=== PATIENT | male | born 1955 | race Caucasian/White ===

== ENCOUNTER 2021-09-26 15:28 | Outpatient (CLI) | payer MEDICARE, OTHER, SELFPAY | END 2021-09-26 15:29 | disposition home or self-care (01) | LOC: LKVREF 15:29 | PROVIDERS: PCP Family Medicine; Visit Provider Physician Assistant Medical | DX: L98.9 Disorder of the skin and subcutaneous tissue, unspecified (principal) | CPT/HCPCS: 86618 ==

== ENCOUNTER 2022-02-24 10:46 | Outpatient (CLI) | payer MEDICARE, OTHER, SELFPAY ==
[2022-02-24 22:40] LABS: Chloride* 104 mmol/L (96-114); Potassium* 4.7 mmol/L (3.6-5.1); Sodium* 138 mmol/L (135-149)
[2022-02-24 22:42] LABS: Cholesterol* 202 mg/dL (90-199); Estimated Glomerular Filt Rate 82 ml/min
[2022-02-24 22:43] LABS: Blood Urea Nitrogen* 21 mg/dL (7-30); Calcium* 9.7 mg/dL (8.4-10.6); Carbon Dioxide* 25 mmol/L (20-32); Glucose* 102 mg/dL (60-115); HDL Cholesterol* 46 mg/dL (>=40); LDL Cholesterol Calculated 105 mg/dL (<100); Triglycerides* 253 mg/dL (40-149)
== END 2022-02-24 10:47 | disposition home or self-care (01) ==
LOC: LKVREF 10:46
PROVIDERS: PCP Family Medicine; Visit Provider Family Medicine
DX: Z00.00 Encounter for general adult medical examination without abnormal findings (principal); I10 Essential (primary) hypertension; Z13.6 Encounter for screening for cardiovascular disorders
CPT/HCPCS: 80048; 80061

== ENCOUNTER 2022-09-06 10:14 | Emergency (ER) | payer MEDICARE, OTHER, SELFPAY ==
[2022-09-06 10:36] VITALS: BP 159/83; PULSE 89; RESP 18; TEMP 36.4; O2SAT 95; BMI 38.5
--- NOTE | 2022-09-06 10:41 | ED.NURSE ---
Last tetanus, per [facility]: 12/24/2017.
--- NOTE | 2022-09-06 11:17 | CRLHL7_ITS ---
For Patients: As a result of the Century Cures Act, medical imaging exams and procedure reports are released immediately into your electronic medical record. You may view this report before your referring provider. If you have questions, please contact your health care provider. INDICATION: Headache. Trauma. TECHNIQUE: Non-contrast CT of the head is submitted. No comparisons. FINDINGS: The ventricles, sulci and gyri are of normal size, shape and contour. Midline structures are centrally located. No convincing evidence of intra- or extra-axial fluid collections. IMPRESSION: 1. No radiographic evidence of acute intracranial abnormalities. Dictated by Yariel Whitaker MD @ 09/06/2022 11:55:12 AM Please note that all CT scans at this facility use dose modulation, iterative reconstruction, and/or weight-based dosing when appropriate to reduce radiation dose to as low as reasonably achievable. Dictated by: Yariel Whitaker MD @ 09/06/2022 11:55:20 (Electronically Signed)
--- NOTE | 2022-09-06 11:19 | ED_ITS ---
HPI - Head Injury General Date Seen: 09/06/22 Chief complaint: Laceration/Wound Stated complaint: Cow knocked him over, head laceration Time Seen by Provider: 09/06/22 10:54 Source: patient Mode of arrival: ambulatory Limitations: no limitations History of Present Illness HPI Narrative: Patient is a very nice 67-year-old gentleman who presents here after head injury not he was knocked over approximately 30-40 minutes go by his cows, no loss consciousness but hit his head on a rock on the ground. Denies any numbness tingling weakness in his arms, or neck pain. No history of nausea vomiting amnesia, or other problems no previous history of a head injury noted, he does not think he is on any anticoagulants, and review here I would agree that. He presented by himself to the emergency room his tetanus is up-to-date, lacerations over the left parietal region. MD Complaint: head injury Severity: moderate Quality: sharp and throbbing Radiation: none Other Injuries: laceration Associated symptoms: denies other symptoms Related Data Home Medications Medication Instructions Recorded Confirmed fluticasone fur. 200 mcg-umeclid inhalation 09/26/21 08/15/22 62.5 mcg-vilant 25 mcg inhalat.powder (Trelegy Ellipta) tamsulosin 0.4 mg capsule 0.4 mg PO 09/26/21 08/15/22 cholecalciferol (vitamin D3) 25 1,000 unit PO DAILY 12/06/21 08/15/22 mcg (1,000 unit) tablet ibuprofen-diphenhydramine citrate 1 cap PO .Bedtime 12/06/21 08/15/22 200 mg-38 mg tablet Previous Rx's Medication Instructions Recorded clotrimazole 10 mg ofelia 10 mg mucous membrane TID #30 tabs 12/06/21 albuterol sulfate 90 mcg/actuation 2 puff inhalation Q4H PRN 03/07/22 aerosol inhaler shortness of breath or wheezing #8.5 grams budesonide-formoterol HFA 160 2 puff inhalation Q12H #10.2 grams 03/07/22 mcg-4.5 mcg/actuation aerosol inhaler (Symbicort) fluticasone furoate 200 1 inh inhalation QDAY #60 ea 03/07/22 mcg-vilanterol 25 mcg/dose inhalation powder (Breo Ellipta) losartan 50 mg tablet 50 mg PO QDAY #90 tabs 03/07/22 pantoprazole 20 mg tablet,delayed 20 mg PO QDAY #90 tabs 03/07/22 release triamterene 37.5 1 cap PO QAM #90 caps 03/07/22 mg-hydrochlorothiazide 25 mg capsule Allergies Allergy/AdvReac Type Severity Reaction Status Date / Time Penicillins Allergy Intermediate Rash Verified 08/15/22 09:06 Review of Systems Status of ROS: Reports: 10 or more systems reviewed and unremarkable except as noted in History and below [facility] Medical History Umbilical hernia ?K42.9 - Umbilical hernia without obstruction or gangrene (ICD-10) GERD (gastroesophageal reflux disease) ?K21.9 - Gastro-esophageal reflux disease without esophagitis (ICD-10) Malignant neoplasm of prostate ?C61 - Malignant neoplasm of prostate (ICD-10) Hypertension with goal blood pressure less than 140/80 ?I10 - Essential (primary) hypertension (ICD-10) Asthma ?J45.909 - Unspecified asthma, uncomplicated (ICD-10) Surgical History History of right knee surgery (02/26/17) ?Z98.890 - Other specified postprocedural states (ICD-10) Family History Mother Cancer Social History Narrative: Nonsmoker. Current no EtOH. Smoking Status: Never smoker Little interest or pleasure in doing things: not at all Feeling down, depressed, or hopeless: not at all Exam Narrative: Exam Narrative: Patient is seen in room 3, he epitomizes the tough old robles scenario. Alert oriented x3 speaking to me normally pupils equal round reactive to light his TMs are normal his neck is supple full range of motion from 4 cm through 16 cm is no dyana lateral flexion is 20? in his rotation is greater than 60? without pain, there is large laceration of approximately 3 in over the left parietal region that is gaping, and bleeding. Do not detect a foreign body within it, but it needs to be explored further. Industrial Trainer strengths are equal bilaterally, moves extremities normally is able to walk and talk normally. Strength is normal is upper lower extremities for past symmetrical bilaterally with no problems. Const: Vital Signs, click to edit/add: Vital Signs - 24 hr 09/06/22 10:36 Temperature 97.6 F Pulse Rate [Right Pulse Oximeter] 89 Respiratory Rate 18 Blood Pressure [Ri ght Upper Arm] 159/83 H Pulse Oximetry 95 Oxygen Delivery Me thod Room Air Documenting provider has reviewed patient's vital signs: yes Course Course Hospital Course: Patient's CT shows no acute abnormality reviewed by myself along with radiology. I was then able to suture using 1 mattress suture along with the simple sutures his scalp. There is small hematoma and I did at of a back you ate approximately 15 mL of clotted blood. Pressure dressing is placed bacitracin, and coverage with antibiotics, head injury guidelines given to patient. Signs of infection discussed in detail. Vital Signs Vital signs: Initial Vital Signs Temperature 97.6 F 09/06/22 10:36 Temperature Source Temporal Artery Scan 09/06/22 10:36 Pulse Rate 89 09/06/22 10:36 Respiratory Rate 18 09/06/22 10:36 Blood Pressure 159/83 H 09/06/22 10:36 Blood Pressure Mean 108 H 09/06/22 10:36 Blood Pressure Position Sitting 09/06/22 10:36 Pulse Oximetry 95 09/06/22 10:36 Oxygen Delivery Method Room Air 09/06/22 10:36 Vital Signs Temperature 97.6 F 09/06/22 10:36 Pulse Rate 89 09/06/22 10:36 Respiratory Rate 18 09/06/22 10:36 Blood Pressure 159/83 H 09/06/22 10:36 Pulse Oximetry 95 09/06/22 10:36 Oxygen Delivery Method Room Air 09/06/22 10:36 Temperature 97.6 F 09/06/22 10:36 Pulse Rate 89 09/06/22 10:36 Respiratory Rate 18 09/06/22 10:36 Blood Pressure 159/83 H 09/06/22 10:36 Pulse Oximetry 95 09/06/22 10:36 Oxygen Delivery Method Room Air 09/06/22 10:36 MDM - Head Injury MDM Narrative Medical decision making narrative: Life-threatening differential diagnosis is considered include: Subarachnoid hemorrhage, subdural hemorrhage, epidural hemorrhage. Other differential diagnosis considered include concussion, closed head injury, or neck fracture. I discussed with him is mechanism we should get a CT to rule out intracranial issue. And he will need sutures to close this. I did use lidocaine with epinephrine x6 mL to the numbness area up and we will irrigate the Heck out of it, and go forward. Medical Records Attestation: I reviewed the patient's medical records. Imaging Data CT scan - head: Radiologist's impression: Patient: HOLDEN CASTRO Facility: [facility] Site . Site : [id number] Study: CT Head W/O-09/06/2022 11:33:31 AM Ordering Physician: Bernard Cuba Final Report: INDICATION: Headache. Trauma. TECHNIQUE: Non-contrast CT of the head is submitted. No comparisons. FINDINGS: The ventricles, sulci and gyri are of normal size, shape and contour. Midline structures are centrally located. No convincing evidence of intra- or extra- axial fluid collections. IMPRESSION: 1. No radiographic evidence of acute intracranial abnormalities. Dictated by Yariel Whitaker MD @ 09/06/2022 11:55:12 AM Please note that all CT scans at this facility use dose modulation, iterative reconstruction, and/or weight-based dosing when appropriate to reduce radiation dose to as low as reasonably achievable. Dictated by: Yariel Whitaker MD @ 09/06/2022 11:55:20 (Electronic Signature) Discharge Plan Discharge Clinical Impression: Laceration of occipital scalp, Head injury Patient Disposition: Home, Self-Care Condition: Stable Instructions: Laceration (DC) Additional Instructions: Home rest, is bacitracin on the wound daily, I would leave the dressing that she puts on there on for the next 3-4 hours, increasing pain fevers chills rashes or purulence with this is infection need to come back and be seen, sutures should come out in 10 days with her primary care physician, increasing headache nausea vomiting he need to come back and be seen, we do have a normal CT which is very reassuring. Prescriptions: No Action Trelegy Ellipta 200-62.5-25 mcg blister with device inhalation tamsulosin 0.4 mg capsule 0.4 mg PO ibuprofen-diphenhydramine cit 200-38 mg tablet 1 cap PO .Bedtime cholecalciferol (vitamin D3) 25 mcg (1,000 unit) tablet 1,000 unit PO DAILY clotrimazole 10 mg ofelia 10 mg mucous membrane TID Qty: 30 0RF pantoprazole 20 mg tablet,delayed release (DR/EC) 20 mg PO QDAY Qty: 90 3RF losartan 50 mg tablet 50 mg PO QDAY Qty: 90 3RF triamterene-hydrochlorothiazid 37.5-25 mg capsule 1 cap PO QAM Qty: 90 3RF fluticasone furoate-vilanterol [Breo Ellipta] 200-25 mcg/dose blister with device 1 inh inhalation QDAY Qty: 60 1RF albuterol sulfate 90 mcg/actuation HFA aerosol inhaler 2 puff inhalation Q4H PRN (Reason: shortness of breath or wheezing) Qty: 8.5 2RF budesonide-formoterol [Symbicort] 160-4.5 mcg/actuation HFA aerosol inhaler 2 puff inhalation Q12H Qty: 10.2 2RF Follow Up/Referrals: Austyn Zepeda MD [Primary Care Provider] - Stand Alone Forms: [facility] Info Instructions Procedures Laceration Laceration 1: Pre procedure diagnosis: Laceration to left occiptal parietal region Site marking: not applicable Name of person performing procedure: Bereket Wagner Site: scalp Side (If applicable): left Size (cm): 7 Description: linear Depth: simple, single layer Local Anesthetic: lidocaine 1% and with epi Amount of anesthesia used (mL): 6 Skin layer closed with: nylon Size (cm): 3-0 Number of sutures: 7 Technique: simple, interrupted and horizontal mattress Wound cleansing: sterile water Estimated blood loss (if any): less than 5mls Conclusion: patient tolerated procedure
--- NOTE | 2022-09-06 12:45 | ED.NURSE ---
bacitracin applied, no bleeding, pt declined pressure dressing
== END 2022-09-06 12:51 | disposition home or self-care (01) ==
PROVIDERS: Emergency Provider Family Medicine; PCP Family Medicine
DX: S01.01XA Laceration without foreign body of scalp, initial encounter (principal); W55.29XA Other contact with cow, initial encounter
CPT/HCPCS: 12002; 70450; 99283; 99284

== ENCOUNTER 2023-06-08 10:06 | Outpatient (CLI) | payer MEDICARE, OTHER, SELFPAY | END 2023-06-08 10:07 | disposition home or self-care (01) | LOC: NFLDREF 06-10 07:24 | PROVIDERS: PCP Family Medicine; Referring Provider Family Medicine; Visit Provider Family Medicine | DX: I10 Essential (primary) hypertension (principal); Z13.220 Encounter for screening for lipoid disorders | CPT/HCPCS: 80053; 80061 ==

== ENCOUNTER 2024-06-13 10:38 | Outpatient (CLI) | payer MEDICARE, OTHER, SELFPAY | END 2024-06-13 10:39 | disposition home or self-care (01) | LOC: NFLDREF 06-14 10:39 | PROVIDERS: PCP Family Medicine; Referring Provider Family Medicine; Visit Provider Family Medicine | DX: I10 Essential (primary) hypertension (principal) | CPT/HCPCS: 80053 ==

== ENCOUNTER 2024-08-22 09:44 | Outpatient (CLI) | payer MEDICARE, OTHER, SELFPAY | END 2024-08-22 09:45 | disposition home or self-care (01) | LOC: NFLDREF 19:52 | PROVIDERS: PCP Family Medicine; Referring Provider Family Medicine; Visit Provider Family Medicine | DX: R79.89 Other specified abnormal findings of blood chemistry (principal); I10 Essential (primary) hypertension | CPT/HCPCS: 80061; 80076 ==

== ENCOUNTER 2025-01-25 06:34 | Outpatient (CLI) | payer MEDICARE, SELFPAY ==
--- NOTE | 2025-01-25 06:43 | P.PCN_ITS ---
Procedure Note Time Seen by Provider: 07:00 Date Seen: 01/25/25 Provider Contact Time: 07:45 Date of procedure: 01/25/25 Will [facility] bill your pro fee for this procedure?: Yes Procedure: CRYONEUROLYSIS TREATMENT REPORT REFERRING PROVIDER: Shay Rivas TREATMENT PROVIDER: Papo Nichols PREOPERATIVE DIAGNOSIS: Left knee osteoarthritis POSTOPERATIVE DIAGNOSIS: Left knee osteoarthritis? PROCEDURE: Cryoneurolysis of Multiple Sensory Nerves of the Knee ANESTHESIA: Local INDICATIONS: The patient is a very pleasant 69-year-old male patient with primary osteoarthritis involving the left knee who presents today for cryoneurolysis of multiple sensory nerves to the knee for severe knee pain.?Patient medical history was reviewed. The risks, benefits, treatment alternatives, and complications were discussed with the patient, including but not limited to bleeding, infection, nerve or tissue damage.?Informed consent was obtained. ? PRE-TREATMENT MOTOR ASSESSMENT/PAIN SCORE: Patient was able to demonstrate intact gross motor function with plantarflexion, dorsiflexion, adduction, abduction, hip flexion, and extension of the lower extremity.?Pre-treatment pain score of 5 out of 10 in the left knee. DESCRIPTION OF PROCEDURE: After obtaining informed consent, the patient was brought back to the treatment room and positioned supine on the table.?The left lower extremity was prepped with Chlorhexadine.?We began the procedure by performing our procedural pause.?Once this was completed and verified to be accurate, I began the procedure by identifying the nerves with the use of bedside ultrasound.?After the nerves were identified, the skin was marked and, using 1% lidocaine plain, the area of the nerves were anesthetized. ? After the anesthetic was administered, the Smart Tip 2190 cryoneurolysis needle was inserted into the treatment sites using ultrasound guidance.?Treatment was then initiated on the left lower extremity with the following nerves treated: Superior, superior medial, superior lateral, inferior medial genicular nerves and the infrapatellar branch of the saphenous nerve. At the termination of the treatment, the cryoneurolysis needle was removed with the patient's skin cleansed and Band-Aids and compression dressing applied. Patient tolerated the procedure without any incident or concern.? Patient was then instructed to stand, mobilize the joint, and was examined to ensure gross motor skills were intact. COMPLICATIONS: None POST-TREATMENT PAIN SCORE: 0 out of 10 in the left knee DISPOSITION: Discharge instructions were given to the patient with education on the post-procedure expectations. Patient was instructed to call the Ortho clinic with any post-procedure concerns or questions.
[2025-01-25 06:46] VITALS: BP 149/68; PULSE 77; RESP 16; TEMP 36.9; O2SAT 93
[2025-01-25 07:35] VITALS: BP 187/65; PULSE 83; RESP 16; O2SAT 94
[2025-01-25 07:40] VITALS: BP 158/78
== END 2025-01-25 07:40 | disposition home or self-care (01) ==
LOC: OP CLINIC 06:35
PROVIDERS: PCP Family Medicine; Visit Provider Nurse Anesthetist, Certified Registered
DX: M17.12 Unilateral primary osteoarthritis, left knee (principal)
CPT/HCPCS: 64640; 76942; C9809

== ENCOUNTER 2025-02-06 11:48 | Day surgery (SDC) | payer MEDICARE, SELFPAY ==
[2025-02-05 16:00] VITALS: BP 127/62; PULSE 72; RESP 18; TEMP 35.9; O2SAT 89
[2025-02-05 16:15] VITALS: BP 140/75; PULSE 70; RESP 18; O2SAT 90
[2025-02-05 16:30] VITALS: BP 128/67; PULSE 77; RESP 20; O2SAT 90
[2025-02-06] VITALS (20 sets, daily range): BP systolic 96–148; BP diastolic 51–82; PULSE 71–868; RESP 12–20; TEMP 35.9–36.9; O2SAT 90–96; BMI 36.3
--- NOTE | 2025-02-06 12:23 | W.PM.H&PU ---
History & Physical Update History & Physical Update H&P Reviewed and patient assessed: No changes noted
[2025-02-06] MEDS: LACTATED RINGERS 1000 ML 1,000 ML 100 ML IV ×2 (13:00→14:43)
[2025-02-06] MEDS: SODIUM CHLORIDE 0.9 % (FLUSH) 10 ML SYRINGE IVF (13:00)
[2025-02-06] MEDS: ACETAMINOPHEN 500 MG TABLET 1000 MG PO ×2 (13:10→19:12)
[2025-02-06] MEDS: OXYCODONE (CR) 10 MG TAB.ER.12H PO (13:10)
[2025-02-06] MEDS: MIDAZOLAM HCL 1 MG/ML inj IVP (13:12)
--- NOTE | 2025-02-06 13:33 | P.NB_ITS ---
Nerve Block Nerve Block Time Seen by Provider: 13:20 Date Seen: 02/06/25 Type of block requested by surgeon for post-operative analgesia: adductor canal Side: right Time out performed: Yes Verification of patient name: Yes Verification of date of : Yes Site marking: site marked Name of person performing procedure: Simone Continuous monitoring Was continuous monitoring of O2 sat, B/P, cardiac nurse specialist, recorded every 15 minutes?: Yes Procedure Checklist: sterile prep, needles and gloves Ultrasound guided. Images saved: Yes Medications given in 5ml increments after negative aspiration: Marcaine %: 0.25 mL: 15 Needle gauge: 20 Precedex (mcg): 25 Patient tolerated procedure well: Yes Block Charges Block Charge (with Pro Fee): Femoral Nerve Use of Ultrasound Machine for Block: Yes- US Guidance/pain block
--- NOTE | 2025-02-06 13:34 | P.NB_ITS ---
Nerve Block Nerve Block Time Seen by Provider: 13:20 Date Seen: 02/06/25 Type of block requested by surgeon for post-operative analgesia: geniculars Side: left Time out performed: Yes Verification of patient name: Yes Verification of date of : Yes Site marking: site marked Name of person performing procedure: Simone Continuous monitoring Was continuous monitoring of O2 sat, B/P, bricklayer helper, recorded every 15 minutes?: Yes Procedure Checklist: sterile prep, needles and gloves Ultrasound guided. Images saved: Yes Medications given in 5ml increments after negative aspiration: Marcaine %: 0.25 mL: 9 Needle gauge: 25 Patient tolerated procedure well: Yes Block Charges Block Charge (with Pro Fee): Genicular Nerve Block
--- NOTE | 2025-02-06 13:47 | CRLHL7_ITS ---
For Patients: As a result of the Cures Act, medical imaging exams and procedure reports are released immediately into your electronic medical record. You may view this report before your referring provider. If you have questions, please contact your health care provider. Indication: Left TKA postop. Technique: Left knee 2 views. Comparison: Left knee radiographs 12/29/2024. Findings/Impression: Interval placement of total knee arthroplasty with patellar resurfacing. No immediate hardware related complications. No inappropriate foreign bodies. No periprosthetic fractures. Expected immediate postoperative intra-articular and periarticular emphysema and joint effusion. Dictated by Shay Doshi MD @ 02/07/2025 8:21:34 AM (Electronically Signed)
[2025-02-06] MEDS: TRANEXAMIC ACID 100 MG/ML INJ 1000 MG IV (13:51)
--- NOTE | 2025-02-06 14:08 | SUR.OPER ---
PATIENT QUESTIONS ANSWERED SATISFACTORILY PREOPERATIVELY.? PATIENT BROUGHT TO OR #4 PER CART AFTER ADMINISTRATION OF A BLOCK.? Patient positioned supine on OR #4 bed.? The perioperative?team supported arms bilaterally on arm boards.? Final approval of positioning by surgeon.?
--- NOTE | 2025-02-06 14:13 | P.ANES_ITS ---
Anesthesia Charges Start Date/Time Anesthesia Start Date: 02/06/25 Anesthesia Start Time: 13:30 Stop Date/Time Anesthesia Stop Date: 02/06/25 Anesthesia Stop Time: 15:23 Summary Extremes of Age - Over 70 or under 1: MDA Coding CPT Codes CPT Codes: ANESTH KNEE ARTHROPLASTY - 72261 ([id number]) P3 - PATIENT W/SEVERE SYS DISEASE, QK - SHEET HANGER 2-4 CNCRNT ANES PROC, QX - TURRET LATHE SET UP OPERATOR SVC W/ MD MED DIRECTION Additional Codes: Summary - Extremes of Age - Over 70 or under 1: MDA ([id number])
--- NOTE | 2025-02-06 14:13 | W.ANESCHARGE ---
Anesthesia Charges Start Date/Time Anesthesia Start Date: 02/06/25 Anesthesia Start Time: 13:30 Stop Date/Time Anesthesia Stop Date: 02/06/25 Anesthesia Stop Time: 15:23 Summary Extremes of Age - Over 70 or under 1: MDA Coding CPT Codes CPT Codes: ANESTH KNEE ARTHROPLASTY - 00427 ([id number]) P3 - PATIENT W/SEVERE SYS DISEASE, QK - BRANCH OPERATION EVALUATION MANAGER 2-4 CNCRNT ANES PROC, QX - ASSOCIATE PARTNER SVC W/ MD MED DIRECTION Additional Codes: Summary - Extremes of Age - Over 70 or under 1: MDA ([id number])
--- NOTE | 2025-02-06 14:58 | PM.ORPRC ---
Procedure Note Date of procedure: 02/06/25 Procedure: PREOPERATIVE DIAGNOSIS: 1. Left knee osteoarthritis, primary, severe POSTOPERATIVE DIAGNOSIS: 1. Left knee osteoarthritis, primary, severe PROCEDURE: 1. Left total knee arthroplasty, Press-Fit, fixed bearing - No tourniquet; subvastus SURGEON: Shay Anderson MD. HOUSE REGISTRY RN: TERI Chavez - Of note, a skilled clothing sales assistant was critical for this case to aid in patient positioning, tissue retraction, limb manipulation/positioning, and closure. ANESTHESIA: Spinal anesthetic EBL: 100ml IMPLANTS: DePuy J&J uncemented TKA - Attune PS pressfit femur size 8 Size 6 pressfit tibia fixed bearing 5mm poly spacer 38 mm Affixium patella TOURNIQUET: None COMPLICATIONS: None evident INDICATIONS: The patient is a pleasant 69-year-old male who has experienced severe left knee pain and difficulty bearing weight. Workup included x-rays which revealed severe osteoarthrosis in the knee. Given the deformity, the dysfunction, and the pain, as well as the failure of nonoperative management, recommendation was made for surgery. FINDINGS: Full-thickness chondral loss throughout the knee all 3 compartments. Large effusion upon entering the joint. Large osteophytosis all 3 compartments including posterior condyles of the femur. DESCRIPTION OF PROCEDURE: Following a thorough discussion of risks, benefits, and alternatives consent was obtained and the left knee was marked. The patient was brought to the operating room and placed supine on the operating table. Induction of anesthesia was undertaken. 3 g IV Ancef and 1 g tranexamic acid was administered within 1 hr of incision preoperatively. Proper time-out was performed identifying proper patient, site, procedure. The operative extremity was prepped and draped in the appropriate sterile fashion using ChloraPrep after the patient was positioned supine with all bony prominences well padded. A longitudinal, anterior, midline skin incision was made starting approximately 3cm proximal to the superior pole of the patella and advanced distal to the tibial tubercle. A sub vastus approach was utilized. After mobilizing the patella, retropatellar fatpad was resected and the synovium in the suprapatellar pouch excised to visualize the anterior femoral cortex. Patellar prep showed initial measurement/thickness of 27 mm. It was resected back to approximately 16 mm. The patella prep was completed with drilling and a trial placed followed by a protector plate until final component implantation. Femoral preparation was performed via an intramedullary guide. Step drill allowed access into the femoral canal. The distal cutting guide was placed with 5? of valgus and 12 mm cut on the distal femur due to a 5-7 degree flexion contracture. Femur was sized using a anterior referencing guide (in addition to referencing the transepicondylar axis and Sigifredo's line) in 3? of external rotation. This was found to have a best fit with the sizing noted above. The 4 in 1 cutting block was then placed, and the distal femur shaped accordingly. The box cut was then completed. We turned our attention to the proximal tibia. Extramedullary guide was utilized for cutting with the goal of being 90 degree cut from the mechanical axis of the tibia in the varus/valgus plane utilizing tibial crest as the primary alignment. Initially a 2 mm resection was performed from the medial tibial plateau. Ultimately, balancing was achieved in both flexion and extension in both varus and valgus. The knee was able to achieve full extension comfortably. It was sized to be a best fit with as noted above. At this stage, trial implants were removed, the tibia and femoral and patellar components were opened and inserted. The real poly spacer was opened and inserted. A 3 min Betadine soak performed. Finally, a final irrigation round with normal saline was performed. Closure performed with 0 PDS and #0 Stratafix for the quad tendon/retinaculum. 2-0 Vicryl/Stratafix for the subcutaneous and 4-0 Monocryl for subcuticular closure. Dressings were applied and the patient was awoken from anesthesia and transferred the PACU in stable condition. A skilled clothing sales assistant was critical for this case to aid in patient positioning, tissue retraction, bone exposure, limb manipulation/positioning, patient safety, and closure. PLAN: 1. Weight bear as tolerated operative extremity. 2. 23 hr perioperative antibiotics. 3. Ice. 4. PT/OT consults for ambulation assistance/mobility education. 5. Social work consult for discharge planning. 6. DVT prophylaxis with at SCDs, and aspirin twice daily.
--- NOTE | 2025-02-06 15:25 | P.ANES_ITS ---
Anesthesia Charges Start Date/Time Anesthesia Start Date: 02/06/25 Anesthesia Start Time: 13:30 Stop Date/Time Anesthesia Stop Date: 02/06/25 Anesthesia Stop Time: 15:23 Summary Extremes of Age - Over 70 or under 1: INVESTMENT BANKING MANAGER Coding CPT Codes CPT Codes: ANESTH KNEE ARTHROPLASTY - 22668 ([id number]) P3 - PATIENT W/SEVERE SYS DISEASE, QK - BREAKDOWN MILL OPERATOR 2-4 CNCRNT ANES PROC, QX - INVESTMENT BANKING MANAGER SVC W/ MD MED DIRECTION Additional Codes: Summary - Extremes of Age - Over 70 or under 1: INVESTMENT BANKING MANAGER ([id number])
--- NOTE | 2025-02-06 15:25 | W.ANESCHARGE ---
Anesthesia Charges Start Date/Time Anesthesia Start Date: 02/06/25 Anesthesia Start Time: 13:30 Stop Date/Time Anesthesia Stop Date: 02/06/25 Anesthesia Stop Time: 15:23 Summary Extremes of Age - Over 70 or under 1: DISPATCHER ELECTRIC POWER Coding CPT Codes CPT Codes: ANESTH KNEE ARTHROPLASTY - 18611 ([id number]) P3 - PATIENT W/SEVERE SYS DISEASE, QK - CLERK TELEVISION PRODUCTION 2-4 CNCRNT ANES PROC, QX - DISPATCHER ELECTRIC POWER SVC W/ MD MED DIRECTION Additional Codes: Summary - Extremes of Age - Over 70 or under 1: DISPATCHER ELECTRIC POWER ([id number])
[2025-02-06] MEDS: LACTATED RINGERS 1000 ML 1,000 ML 75 ML IV (16:31)
--- NOTE | 2025-02-06 19:33 | PC.NURSE ---
End of shift Note 257 Patient has been very pleasant and cooperative throughout shift. 2L NC. VSS. A&Ox4. Patient has not reported pain through this shift. Regular diet. Uses call light appropriately. SCD foot in place. Call light within reach.
[2025-02-06] MEDS: SENNOSIDES 1 TAB TABLET 2 TAB PO (21:18)
[2025-02-06] MEDS: ASPIRIN 81 MG TABLET EC PO (21:18)
--- NOTE | 2025-02-07 00:19 | PM.IMCN1 ---
Date of Consult Patient: [facility] Patient Consult date: 02/06/25 Requesting Physician: Orthopedics Primary Care Provider: Austyn Zepeda MD Consult Narrative Narrative: Norman Mcwilliams is a 69 year old male admitted to the hospital for left total knee arthroplasty. Procedure performed by Dr. Anderson. No complications. Dr. Anderson requests consultation for management medical problems after surgery. Patient reports generally doing well. He is hypoxic and using oxygen per nasal cannula. He is not dyspneic. No cough or chest pain. Patient does report he has asthma which has been well controlled and also sleep apnea for which he uses CPAP. He did bring this with him. No other concerns at this time. He reports feeling fine and breathing fine he came to the hospital today. He had a preop physical which identified no significant problems or concerns. Review of Systems Narrative: No recent illness or injury. [facility] Medical History (Updated 02/07/25 @ 00:26 by Kian Ann MD) Obstructive sleep apnea ?G47.33 - Obstructive sleep apnea (adult) (pediatric) (ICD-10) Allergic rhinitis ?J30.9 - Allergic rhinitis, unspecified (ICD-10) Medicare annual wellness visit, subsequent ?Z00.00 - Encounter for general adult medical examination without abnormal findings (ICD-10) Umbilical hernia ?K42.9 - Umbilical hernia without obstruction or gangrene (ICD-10) GERD (gastroesophageal reflux disease) ?K21.9 - Gastro-esophageal reflux disease without esophagitis (ICD-10) Malignant neoplasm of prostate ?C61 - Malignant neoplasm of prostate (ICD-10) Hypertension with goal blood pressure less than 140/80 ?I10 - Essential (primary) hypertension (ICD-10) Asthma ?J45.909 - Unspecified asthma, uncomplicated (ICD-10) Surgical History (Updated 02/07/25 @ 00:26 by Kian Ann MD) S/P total knee arthroplasty ?Z96.659 - Presence of unspecified artificial knee joint (ICD-10) History of right knee surgery (02/26/17) ?Z98.890 - Other specified postprocedural states (ICD-10) Family History Mother Cancer Social History (Updated 02/07/25 @ 00:21 by Kian Ann MD) Narrative: He lives in [place] by himself. He has an apartment with an elevator. He has hired a home health manager home healthcare to come and help him in his rehabilitation. His healthcare power of insurance defense attorney is his nephew, Domingo Mcwilliams, of [place]. Code status is full. Nonsmoker. Current no EtOH. What is your current living situation?: I presently have a place to live Problems where you live: no known problems In the past 12 months, utilities in danger of being shut off: no In past 12 months, lack of transportation kept you from medical appts, meetings, work, or getting things needed for daily living: no In the past 12 mos, have been you worried that your food would run out before you had money to buy more?: never true In the past 12 mos, the food you bought just didn't last and you didn't have money to buy more?: never true Smoking Status: Never smoker Do you use any of these nicotine containing products: None Second hand tobacco smoke exposure: No How often do you have a drink containing alcohol: never AUDIT-C Alcohol total score: 0 Non-prescribed substance use: denies use How often does anyone, including family, friends and others, physically hurt you: never How often does anyone, including family, friends and others, insult or talk down to you: never How often does anyone, including family, friends and others, threaten you with harm: never How often does anyone, including family, friends and others, scream or curse at you: never Meds Home Medications and Allergies Home Medications ?Medication ?Instructions ?Recorded ?Confirmed ?Type acetaminophen 500 mg tablet 1,000 mg PO Q6H PRN 01/20/23 01/24/25 History (Tylenol Extra Strength) albuterol sulfate 90 mcg/actuation 2 puff inhalation Q4H PRN 01/04/24 02/06/25 Rx aerosol inhaler shortness of breath or wheezing #8.5 grams cetirizine 10 mg capsule (Zyrtec) 10 mg PO QDAY PRN allergy symptoms 01/04/24 02/06/25 Rx #90 caps nebulizers (Altera Nebulizer #1 ea 01/04/24 01/24/25 Rx System) fluticasone furoate 200 1 inh inhalation QDAY #180 ea 04/26/24 02/06/25 Rx mcg-vilanterol 25 mcg/dose inhalation powder (Breo Ellipta) pantoprazole 20 mg tablet,delayed 20 mg PO QDAY #90 tabs 06/13/24 02/06/25 Rx release tamsulosin 0.4 mg capsule 0.4 mg PO QDAY #90 caps 06/13/24 02/06/25 Rx losartan 50 mg tablet 50 mg PO QDAY #90 tabs 06/30/24 02/06/25 Rx triamterene 37.5 1 cap PO QAM #90 caps 06/30/24 02/06/25 Rx mg-hydrochlorothiazide 25 mg capsule aspirin 81 mg tablet,delayed 81 mg PO BID #60 tabs 01/31/25 02/06/25 Rx release (Adult Aspirin Regimen) sennosides 8.6 mg-docusate sodium 1 tab-cap PO QHS #15 tabs 01/31/25 02/06/25 Rx 50 mg tablet (Senna-S) Held on 02/06/25. Instructions: Resume on 03/08/25. Will provided a different prescription for constipation at this time. oxycodone 5 mg tablet 2.5 - 5 mg (0.5 - 1 x 5 mg) PO 02/06/25 Rx Q4-6H PRN pain #42 tabs sennosides 8.6 mg-docusate sodium 1 - 4 tab-cap (1 - 4 x 8.6-50 mg) 02/06/25 Rx 50 mg tablet (Senna-S) PO BID PRN constipation #60 tabs Allergies Allergy/AdvReac Type Severity Reaction Status Date / Time Penicillins Allergy Intermediate Rash Verified 02/06/25 12:00 Exam Narrative: Exam Narrative: He is alert and appears in no distress. Breathing is unlabored on nasal cannula oxygen. Oropharynx with very small airway. Neck is supple without mass or adenopathy. Respirations are clear to auscultation except for a few basilar crackles. No wheezing rales or rhonchi. Fair air exchange in all lung fallon. Cardiovascular: S1, S2, regular rate and rhythm. Abdomen: Bowel sounds active. Abdomen is soft without tenderness or mass. Extremities with intact pulses and sensation. He moves his ankles bilaterally without focal weakness. No significant edema. Left knee is without significant erythema drainage or swelling Const: Vital Signs, click to edit/add: Vital Signs - 24 hr 02/06/25 12:19 02/06/25 13:10 02/06/25 13:15 Temperature 98.2 F Pulse Rate 85 71 74 Respiratory Rate 20 20 20 Blood Pressure 142/80 H 126/74 120/69 Pulse Oximetry 94 96 95 Oxygen Delivery Me thod Room Air Nasal Cannula Nasal Cannula Oxygen Flow Rate 2 2 02/06/25 13:20 02/06/25 15:20 02/06/25 15:25 Temperature 98.5 F Pulse Rate 74 76 74 Respiratory Rate 20 14 12 Blood Pressure 131/71 96/51 L 99/56 L Pulse Oximetry 96 94 92 Oxygen Delivery Me thod Nasal Cannula Room Air Room Air Oxygen Flow Rate 2 02/06/25 15:30 02/06/25 15:35 02/06/25 15:40 Temperature Pulse Rate 76 76 74 Respiratory Rate 14 14 12 Blood Pressure 97/54 L 99/64 122/71 Pulse Oximetry 94 93 92 Oxygen Delivery Me thod Room Air Room Air Room Air Oxygen Flow Rate 02/06/25 15:45 02/06/25 15:55 02/06/25 16:45 Temperature 96.6 F L Pulse Rate 76 75 79 Respiratory Rate 14 18 18 Blood Pressure 131/75 128/72 143/72 H Pulse Oximetry 94 90 90 Oxygen Delivery Me thod Room Air Nasal Cannula Nasal Cannula Oxygen Flow Rate 2 2 2 02/06/25 17:00 02/06/25 17:30 02/06/25 18:00 Temperature 97.0 F L 97.3 F L Pulse Rate 73 75 77 Respiratory Rate 18 18 18 Blood Pressure 141/70 H 142/69 H 136/81 Pulse Oximetry 93 94 94 Oxygen Delivery Me thod Nasal Cannula Nasal Cannula Nasal Cannula Oxygen Flow Rate 2 2 2 02/06/25 19:00 02/06/25 20:00 02/06/25 21:00 Temperature 97.6 F 97.7 F 97.2 F L Pulse Rate 86 868 H 83 Respiratory Rate 18 18 18 Blood Pressure 143/76 H 137/72 137/74 Pulse Oximetry 90 91 92 Oxygen Delivery Me thod Nasal Cannula Nasal Cannula Nasal Cannula Oxygen Flow Rate 2 2 2 02/06/25 22:00 02/06/25 23:00 02/06/25 23:00 Temperature 97.5 F L Pulse Rate 77 82 Respiratory Rate 18 18 Blood Pressure 148/76 H 144/82 H Pulse Oximetry 92 92 92 Oxygen Delivery Me thod Nasal Cannula Room Air Oxygen Flow Rate 2 02/06/25 23:00 Temperature Pulse Rate Respiratory Rate Blood Pressure Pulse Oximetry 92 Oxygen Delivery Me thod CPAP Oxygen Flow Rate Documenting provider has reviewed patient's vital signs: yes Assessment and Plan Assessment and plan (1) S/P total knee arthroplasty: Problem comment: Left, Dr. Anderson, 02/07/2025 Status: Acute (2) Postoperative hypoxia: Problem comment: Likely combination of postoperative sedation, underlying sleep apnea and possibly asthma. Further evaluation if not resolving. Status: Acute (3) Obstructive sleep apnea: Problem comment: On home CPAP Status: Acute (4) Asthma: Problem comment: Appears to be adequately controlled at this time Status: Chronic Plan Admitted to the hospital for postoperative management of knee replacement as well as postoperative medical problems including hypoxia, MAYRA, asthma. Anticipate discharge to home tomorrow if doing well. Reassess respiratory status prior to discharge. Total Time Spent Total Time Spent: Total time spent today is 45 minutes in reviewing outside records, coordination of care, discussion with patient ongoing management of knee surgery and recovery.
[2025-02-07] MEDS: ACETAMINOPHEN 500 MG TABLET 1000 MG PO ×2 (02:00→06:46)
[2025-02-07 04:03] VITALS: BP 126/64; PULSE 77; RESP 16; TEMP 36.8; O2SAT 94
--- NOTE | 2025-02-07 06:51 | PC.NURSE ---
[id number]:?Pt pleasant, alert, oriented and vitally stable.?Pt denied pain throughout the shift. Home CPAP in use. Dressing C/D/I. CMS intact.?SBA.?Pt in bed, appears to be resting, call light within reach.?
[2025-02-07 07:00] VITALS: BP 141/78; PULSE 80; RESP 18; TEMP 36.8; O2SAT 91
[2025-02-07] MEDS: SENNOSIDES 1 TAB TABLET 2 TAB PO (08:29)
[2025-02-07] MEDS: TAMSULOSIN HCL 0.4 MG CAPSULE PO (08:30)
[2025-02-07] MEDS: OMEPRAZOLE 20 MG CAPSULE DR PO (08:30)
[2025-02-07] MEDS: LOSARTAN POTASSIUM 50 MG TABLET PO (08:30)
[2025-02-07] MEDS: ASPIRIN 81 MG TABLET EC PO (08:35)
--- NOTE | 2025-02-07 11:12 | PC.NURSE ---
Discharge Note 257 Patient was very pleasant and cooperative throughout shift. VSS. Afebrile. A&Ox4. SBA. Patient reported no pain at discharge. Surgical dressing dry and intact. Patient discharged at 1100 accompanied by a friend.
--- NOTE | 2025-02-07 12:10 | P.ORPN_ITS ---
Subjective Subjective Date Seen: 02/07/25 Principal diagnosis: Status postop day 1 left total knee arthroplasty Interval history: Patient reports doing well. No acute events over night. Pain managed with scheduled and PRN medications, ice. DVT prophylaxis: 81 mg aspirin by mouth twice daily, SCDs, walking. Denies fevers, chills, aches, N/V, CP, SOB/TOBAR, or lightheadedness. Working with occupational therapy. Ortho Exam Narrative Exam Narrative: -Patient appears comfortable; no apparent acute distress -Alert and oriented times 3 -Operative knee mildly swollen; soft tissues supple; no ecchymosis; no erythematous streaking Warmth appropriate -Surgical dressing clean, dry, intact; no drainage -Bilateral calves soft; no significant swelling, edema, tenderness, erythema, discoloration, warmth, or palpable cords -2+ DP/PT pulses, intact dermatomes and myotomes distally (5/5 strength) Const Vital Signs, click to edit/add: Vital Signs - 24 hr 02/06/25 12:19 02/06/25 13:10 02/06/25 13:15 Temperature 98.2 F Pulse Rate 85 71 74 Respiratory Rate 20 20 20 Blood Pressure 142/80 H 126/74 120/69 Pulse Oximetry 94 96 95 Oxygen Delivery Method Room Air Nasal Cannula Nasal Cannula Oxygen Flow Rate 2 2 02/06/25 13:20 02/06/25 15:20 02/06/25 15:25 Temperature 98.5 F Pulse Rate 74 76 74 Respiratory Rate 20 14 12 Blood Pressure 131/71 96/51 L 99/56 L Pulse Oximetry 96 94 92 Oxygen Delivery Method Nasal Cannula Room Air Room Air Oxygen Flow Rate 2 02/06/25 15:30 02/06/25 15:35 02/06/25 15:40 Temperature Pulse Rate 76 76 74 Respiratory Rate 14 14 12 Blood Pressure 97/54 L 99/64 122/71 Pulse Oximetry 94 93 92 Oxygen Delivery Method Room Air Room Air Room Air Oxygen Flow Rate 02/06/25 15:45 02/06/25 15:55 02/06/25 16:45 Temperature 96.6 F L Pulse Rate 76 75 79 Respiratory Rate 14 18 18 Blood Pressure 131/75 128/72 143/72 H Pulse Oximetry 94 90 90 Oxygen Delivery Method Room Air Nasal Cannula Nasal Cannula Oxygen Flow Rate 2 2 2 02/06/25 17:00 02/06/25 17:30 02/06/25 18:00 Temperature 97.0 F L 97.3 F L Pulse Rate 73 75 77 Respiratory Rate 18 18 18 Blood Pressure 141/70 H 142/69 H 136/81 Pulse Oximetry 93 94 94 Oxygen Delivery Method Nasal Cannula Nasal Cannula Nasal Cannula Oxygen Flow Rate 2 2 2 02/06/25 19:00 02/06/25 20:00 02/06/25 21:00 Temperature 97.6 F 97.7 F 97.2 F L Pulse Rate 86 868 H 83 Respiratory Rate 18 18 18 Blood Pressure 143/76 H 137/72 137/74 Pulse Oximetry 90 91 92 Oxygen Delivery Method Nasal Cannula Nasal Cannula Nasal Cannula Oxygen Flow Rate 2 2 2 02/06/25 22:00 02/06/25 23:00 02/06/25 23:00 Temperature 97.5 F L Pulse Rate 77 82 Respiratory Rate 18 18 Blood Pressure 148/76 H 144/82 H Pulse Oximetry 92 92 92 Oxygen Delivery Method Nasal Cannula Room Air Oxygen Flow Rate 2 02/06/25 23:00 02/07/25 04:03 02/07/25 07:00 Temperature 98.3 F Pulse Rate 77 Respiratory Rate 16 Blood Pressure 126/64 Pulse Oximetry 92 94 91 Oxygen Delivery Method CPAP Oxygen Flow Rate 02/07/25 07:00 02/07/25 07:00 Temperature 98.3 F Pulse Rate 80 Respiratory Rate 18 Blood Pressure 141/78 H Pulse Oximetry 91 91 Oxygen Delivery Method Room Air Room Air Oxygen Flow Rate Assessment and Plan Assessment and plan (1) S/P total knee arthroplasty: Problem details: LeftDr. Anderson, 02/07/2025 Status: Acute (2) Postoperative hypoxia: Problem details: Likely combination of postoperative sedation, underlying sleep apnea and poss ibly asthma. Further evaluation if not resolving. Status: Acute (3) Obstructive sleep apnea: Problem details: On home CPAP Status: Acute (4) Asthma: Problem details: Appears to be adequately controlled at this time Status: Chronic Plan - Complete 23 hour perioperative antibiotics. - PT/OT consult for education and assistance. - Social work consult for discharge planning - Prescribed analgesics as needed - DVT prophylaxis: 81 mg aspirin by mouth twice daily, walking, and SCDs - Anticipation is for discharge to home with family/friends today 02/07/2025 if the patient remains medically stable, pain is controlled, and they are safe with mobilization. Patient has hired a home health nurse.
== END 2025-02-07 11:00 | disposition home or self-care (01) ==
LOC: OR 11:49 → MEDSURG 11:50
PROVIDERS: PCP Family Medicine; Visit Provider Orthopaedic Surgery Sports Medicine
PROC: (CPT 27447; principal; 2025-02-06 14:00)
DX: M17.12 Unilateral primary osteoarthritis, left knee (principal); G89.18 Other acute postprocedural pain; R09.02 Hypoxemia; G47.33 Obstructive sleep apnea (adult) (pediatric); Z99.89 Dependence on other enabling machines and devices; J45.909 Unspecified asthma, uncomplicated; K21.9 Gastro-esophageal reflux disease without esophagitis; I10 Essential (primary) hypertension
CPT/HCPCS: 27447; 01402; 64447; 64454; 73560; 76942; 97110; 97116; 97161; 97165; 97530; 97535; 99100; A9270; C1776; J0665; J0690; J1100; J2250; J2371; J2704; J3010; J7120

== ENCOUNTER 2025-03-21 11:00 | Outpatient (RCR) | payer MEDICARE, SELFPAY ==
--- NOTE | 2025-02-09 14:54 | PT.OPEX ---
PT [place] Outpatient Eval PT [facility] Outpatient Eval Start: 02/09/25 11:18 Freq: Status: Active Protocol: Document 02/09/25 11:19 HLA (Rec: 02/09/25 14:44 HLA [id number]) E-signed By Sandy Garcia, PT, DPT Physical Therapy Outpatient Evaluation Insurance Information Recert Due Date 05/09/25 Insurance Name Medicare B Medical Diagnosis L TKA Treating Diagnosis impaired ROM, weakness, pain, difficulty amb after L TKA Referring MD Mcwilliams Subjective Preferred Name Norman Subjective Norman arrives with walker. He reports feeling warm. Pain is manageable. He did 'some of the stretches' and did the [place] [place] bike at home 5x/day. Uses NICE machine with compression starting today. This is helping his pain. He is taking Excedrin for pain, also oxycodone every 5- 6 hours. Pain Comments pain is mild, more stiff than pain. Date of Last 02/07/25 Physician Visit Date of Surgery (If 02/06/25 applicable) Current Work Status Retired Precautions Weight Bearing Weight Bear as Tolerated Status Therapy Limitations/ Not Limited Systems Review Objective Range of Motion AAROM R knee 5-95 by end of session, seated, overpressure hips B 0-110 flex, abd 0-30 L knee 0-110 ankles full Strength 5/5 UEs,R LE L knee 3-/5 Swelling edema RL knee, added tubigrip Balance & Gait Gt with ww, knee flexed on L at stance, mod wt through hands on walker. Able to correct to heel toe patterning , posture, reciprocal gt pattern with cues. 100 feet x 2 stairs step to balance fair with walker Sensation/Reflexes intact to light touch Other/Pertinent circumference Objective 53 cm 10 cm prox to patella 53 cm mid patella 42 cm 10 cm distal to patella Functional Test LEFS 16/80 or 20% Performed & Score Assessment Assessment/ Norman is a 69 year old male with hx of OA, prostate Impression cancer, & MAYRA on CPAP, underwent L TKA with Dr. Anderson 02/06/25. He had Iovera prior to surgery. Pt at baseline lives alone in an apt, no stairs. He was using a ww prior to surgery due to pain. Pt has a hired caregiver helping him post-operatively. Pt is using [employer] bike, NICE with compression. Elevating in recliner and sleeping in his bed. He has been doing a few of his exercises, but not consistently. Pt arrives using ww, min wt through L LE, flexed knee at stance. He was able to correct to heel toe gt with cues. Tubigrip added for edema of the knee. Therapist instructed Norman in positioning, use of ice, activity level, bed mobility, transfers, gt with walker, stairs and car transfers. Pt performed TKA ex with assist for HS, SAQ, SLR and LAQ. Patient presents with edema, pain surgical leg, impaired ROM, impaired strength, impaired transfers and impaired ambulation. He will benefit from PT twice weekly to regain full ROM and strength L knee, return to community distance amb with AD as indicated. Primary Functional impaired ROM, weakness, pain, difficulty amb after L Limitations TKA Plan of Care Rehabilitation Good Potential Physical Therapy Within 10-12 weeks: Goals 1. Pt will have knee AROM 0-120 degrees for transfers, ADLs, and stairs independence. 2. Pt will amb 20 min with se cane or no device as indicated, safely and independently for community and household ambulation. 3. Pt will be independent in home ex program for legal process specialist pain management and to promote independence and to decrease fall risk. 4. Pt will ascend/descend 13 stairs with railing independently for community mobility. Coordination/ Referral Source,Patient Caregiver,Employer,Desizing Pad OperatorModeling And Simulation Analyst With (C) Treatment Plan/ Dry Needling,Electrical Stimulation,Gait Training,Ice/ Direct Interventions Cold/Vasopneumatic,Manual Therapy,Neuromuscular Re-ed, Self-Care/Home Management,Therapeutic Activities, Therapeutic Exercises Frequency/Duration 2x/week x 10-12 weeks Patient Will Be Completion of LTG(s),Skills Plateau,Independent w/HEP, Discharged From Independently Progressing Therapy Evaluation Billing Untimed Code 20 Treatment Minutes PT Eval No Charge No Complexity Low Certification Information Initial 02/09/25 Certification Date Ending Certification 05/09/25 Date Provider Signature Yes Required Provider Signature POC & Medical Necessity Shows Agreement With Physician NPI Number Write NPI# Here Physician Comment/ : Change Physician Signature Please Sign/Date Here & Date Requested
== END 2025-03-22 12:03 | disposition home or self-care (01) ==
PROVIDERS: PCP Family Medicine; Visit Provider Orthopaedic Surgery Sports Medicine
DX: Z47.1 Aftercare following joint replacement surgery (principal); Z96.652 Presence of left artificial knee joint; Z51.89 Encounter for other specified aftercare
CPT/HCPCS: 97110; 97112; 97116; 97140; 97161